=== PATIENT | male | born 1980 | race Caucasian/White ===

== ENCOUNTER 2019-02-19 20:32 | Emergency (ER) | payer MEDICAID, OTHER ==
[~2019-02-19] VITALS: Ht 182.9 cm; Wt 79.4 kg
[2019-02-20 13:00] VITALS: BP 134/85
== END 2019-02-20 13:03 | disposition home or self-care (01) ==
LOC: ER 20:37
DX: K40.90 Unilateral inguinal hernia, without obstruction or gangrene, not specified as recurrent (principal)
CPT/HCPCS: 74176

== ENCOUNTER 2025-04-19 17:59 | Emergency (ER) | payer MEDICAID ==
[~2025-04-19] VITALS: Ht 175.3 cm; Wt 84.3 kg
--- NOTE | 2025-04-19 18:28 | ED.PDOC ---
Musculoskeletal HPI Comments 44 year old male presents to ER with complaints of right 2nd finger laceration x 1 day. Patient states that he sustained a laceration to right 2nd finger at 4:50 p.m. prior to arrival to ER s/p his right 2nd finger making impact with the running engine fan of his truck. He reports 5/10 pain localized to right 2nd finger without radiation. Denies use of medications for current symptoms. States he is unsure when his last tetanus shot was. Denies numbness/tingling or any further symptoms/complaints Chief Complaint: Laceration Time Seen by MD: 18:16 Primary Care Provider: UNKNOWN Reviewed Notes: Nurses Notes, Medications, Allergies Allergies: Coded Allergies: NO KNOWN ALLERGIES (Unverified , 10/21/14) Home Meds Active Scripts Ibuprofen (Ibuprofen) 800 Mg Tab, 1 TAB PO TID PRN, #30 TAB 0 Refills Prov:PETER HODGES 04/19/25 Clindamycin Hcl (Clindamycin Hcl) 300 Mg Cap, 1 CAP PO TID for 7 Days, #21 CAP 0 Refills Prov:PETER HODGES 04/19/25 Information Source: Patient Mode of Arrival: Ambulatory Past Medical History PAST MEDICAL HISTORY: Denies Surgical History: Hernia Repair Family History Family History: Unknown Social History Smoker: Non-Smoker Alcohol: Denies ETOH Use Drugs: Denies Drug Use Lives In: Home Constitutional: denies: chills, diaphoresis, fatigue, fever, malaise, sweats, weakness, others EENTM: denies: blurred vision, double vision, ear bleeding, ear discharge, ear drainage, ear pain, ear ringing, eye pain, eye redness, hearing loss, mouth pain, mouth swelling, nasal discharge, nose bleeding, nose congestion, nose pain, photophobia, tearing, throat pain, throat swelling, voice changes, others Respiratory: denies: cough, hemoptysis, orthopnea, SOB at rest, shortness of breath, SOB with excertion, stridor, wheezing, others Cardiovascular: denies: chest pain, dizzy spells, diaphoresis, Dyspnea on exertion, edema, irregular heart beat, left arm pain, lightheadedness, palpitations, PND, syncope, others Gastrointestinal: denies: abdomen distended, abdominal pain, blood streaked bowels, constipated, diarrhea, dysphagia, difficulty swallowing, hematemesis, me cahrli, nausea, poor appetite, poor fluid intake, rectal bleeding, rectal pain, vomiting, others Genitourinary: denies: burning, dysuria, flank pain, frequency, hematuria, incontinence, penile discharge, penile sore, pain, testicle pain, testicle swelling, urgency, others Neurological: denies: dizziness, fainting, headache, left sided numbness, left sided weakness, numbness, paresthesia, pre-existing deficit, right sided numbness, right sided weakness, seizure, speech problems, tingling, tremors, weakness, others Musculoskeletal: reports: others (As stated in HPI) Integumetry: reports: others (As stated in HPI) Allergic/Immunocompromised: denies: Difficulty Healing, Frequent Infections, Hives, Itching, others Hematologic/Lymphatic: denies: anemia, blood clots, easy bleeding, easy bruising, swollen glands, others Endocrine: denies: excessive hunger, excessive sweating, excessive thirst, excessive urination, flushing, intolerance to cold, intolerance to heat, unexplained weight gain, unexplained weight loss, others Psychiatric: denies: anxiety, bipolar disorder, depression, hopeless, panic disorder, schizophrenia, sleepless, suicidal, others Physical Exam General Appearance: No Apparent Distress HEENT: PERRL/EOMI Neck: Full Range of Motion, Non-Tender, Normal Respiratory: Chest Non-Tender, Lungs Clear, No Accessory Muscle Use, No Respiratory Distress, Normal Breath Sounds Cardiovascular: No Murmur, No Gallop, Regular Rate/Rhythm Breast Exam: Deferred Gastrointestinal: NOT DONE Genitalia: Deferred Pelvic: Deferred Rectal: Deferred Extremities: Normal capillary refill, Normal range of motion Musculoskeletal : Extremity Location: Finger 2 (1 cm laceration noted to distal tuft of right 2nd finger with partial nailbed involvement. Slight TTP/swelling/erythema localized to wound edges. Patient able to fully move all fingers right hand. Pulses intact) Neurologic: Alert, No Motor Deficits, Normal Affect, Normal Mood, No Sensory Deficits Cerebellar Function: Normal Reflexes: Normal Skin: Dry, Warm Peripheral Pulses: 2+ Radial (R), 2+ Radial (L), 2+ Brachial (R), 2+ Brachial (L) Lymphatic: No Adenopathy Was a procedure done? Was a procedure done?: Yes Sedation Sedation?: No Laceration Repair : Location Right 2nd finger Length 1 cm Anesthetic: Lidocaine (1%), Without epi Laceration Repair Prep: Saline Laceration Repair Wound Comple: epidermis/dermis repair Laceration Repair: Number of sutures (1 placed), Size (4-0), Nylon, Simple, Non-adherent gauze Informed consent obtained: Yes Risks, benefits, and alternati: Yes Differential Diagnosis EXT Differential Diagnosis: Sprain, Dislocation, Neurovascular injury X-Ray, Labs, Meds, VS Vital Signs Date Time Temp Pulse Resp B/P (MAP) Pulse Ox O2 Delivery O2 Flow Rate FiO2 04/19/25 18:10 98.9 59 19 139/94 (109) 95 98.9 PATIENT: DAVID GUADALUPE ACCT: [id number] UNIT: [id number] : 1980 LOC: ER ROOM / BED: / AGE / SEX: 44 / M ADM STATUS: REG ER SERVICE 19 ORDERING PHYSICIAN: PETER HODGES PROCEDURE(s): RFIN2 - R 2ND FINGER XRAY REASON: RIGHT 2ND FINGER PAIN ORDER NUMBER(s): [id number], ACCESSION NUMBER(s): [id number] EXAM: XY R 2ND FINGER XRAY CLINICAL HISTORY: RIGHT 2ND FINGER PAIN COMPARISON: None TECHNIQUE: XY R 2ND FINGER XRAY Findings/Impression: 3 views of the right 2nd digit. Mildly displaced avulsion fracture of the tuft of the 2nd distal phalanx. Mild soft tissue edema There is no evidence of dislocation, blastic, or lytic lesions. No radiopaque foreign bodies. ATED BY: OLY SILVERMAN DO DICTATED DATE/TIME: 04/19/251852 SIGNED BY: OLY SILVERMAN DO SIGNED DATE/TIME: 04/19/251852 CC: Wound cleaning performed at bedside Wound care/cleaning discussed and advised Right 2nd finger x-ray reviewed Patient neurovascularly intact Tdap 0.5 mL IM ordered Hep-lock IV ordered Ancef 2 g IV ordered Right 2nd finger splint applied Advised to follow up with PCP and orthopedic hand specialist in 1-2 days Patient verbalized understanding and agreeable with current plan of care Advised to return to ER immediately if symptoms worsen Images Reviewed?: Images reviewed and evaluated by me Time of 1ST Reevaluation: 18:27 Reevaluation 1ST: N/A Patient Education/Counseling: Diagnosis, Treatment, Prognosis, Need For Follow Up Family Education/Counseling: No Family Present Departure 1 Departure Time of Disposition: 19:02 Impression: Primary Impression: Finger fracture, right Qualified Codes: S62.630B - Displaced fracture of distal phalanx of right index finger, initial encounter for open fracture Disposition: 01 HOME / SELF CARE / HOMELESS Condition: Stable e-Prescriptions Ibuprofen (Ibuprofen) 800 Mg Tab 1 TAB PO TID PRN, #30 TAB 0 Refills Prov: PETER HODGES 04/19/25 Clindamycin Hcl (Clindamycin Hcl) 300 Mg Cap 1 CAP PO TID for 7 Days, #21 CAP 0 Refills Prov: PETER HODGES 04/19/25 Discharged With: Self Critical Care Note Critical Care Time?: No Stability Stability form required: No Heart Score Heart Score: Heart Score Response (Comments) Value History N/A 0 EKG N/A 0 Age N/A 0 Risk Factors N/A 0 Troponin N/A 0 Total 0 PETER HODGES Apr 19, 2025 18:28
[2025-04-19] MEDS ORDERED: CLIN1CAP70 PO (18:32)
[2025-04-19] MEDS ORDERED: IBUP-1456 PO (18:32)
[2025-04-19] MEDS ORDERED: ceFAZolin 1GM/50ML 50 ML IV ONE ×2 (18:45)
--- NOTE | 2025-04-19 18:56 | DVH ---
EXAM: XY R 2ND FINGER XRAY CLINICAL HISTORY: RIGHT 2ND FINGER PAIN COMPARISON: None TECHNIQUE: XY R 2ND FINGER XRAY Findings/Impression: 3 views of the right 2nd digit. Mildly displaced avulsion fracture of the tuft of the 2nd distal phalanx. Mild soft tissue edema There is no evidence of dislocation, blastic, or lytic lesions. No radiopaque foreign bodies.
[2025-04-19 20:37] VITALS: BP 123/80; PULSE 64; TEMP 98.6; O2SAT 97
[2025-04-19] MEDS: ceFAZolin 2 GM/D5W50ml 50 ML IV ONE (21:04)
[2025-04-19] MEDS: TETANUS-DIPTH-ACEL PERTUSSIS 0.5ML SYR Tdap IM ONE (21:05)
[2025-04-19 21:50] VITALS: RESP 18
== END 2025-04-19 22:26 | disposition home or self-care (01) ==
LOC: ER 18:01
DX: S62.630A Displaced fracture of distal phalanx of right index finger, initial encounter for closed fracture (principal); Z98.890 Other specified postprocedural states; Z23 Encounter for immunization; Z79.899 Other long term (current) drug therapy; X58.XXXA Exposure to other specified factors, initial encounter; Y93.89 Activity, other specified; Y92.89 Other specified places as the place of occurrence of the external cause; Y99.8 Other external cause status
CPT/HCPCS: 12001; 29130; 73140; 90471; 90715; 96365; 99284; J0690